=== PATIENT | female | born 1980 | race Caucasian/White ===

== ENCOUNTER 2021-05-15 16:07 | Emergency (ER) | payer OTHER ==
[2021-05-15 16:18] VITALS: RESP 18
[2021-05-15 16:54] LABS: Amorphous Sediment,Urine Few /hpf; Appearance,Urine Turbid (Clear); Bilirubin,Urine Negative (Negative); Blood,Urine Negative (Negative); Color,Urine Yellow; Glucose,Urine (UA) Negative (Negative); Ketones,Urine Negative (Negative); Leukocyte Esterase,Urine Large (Negative); Mucus,Urine Rare /hpf; Nitrite,Urine Negative (Negative); Protein,Urine 1+ (Negative); RBC,Urine 6 /hpf (0-5); Specific Gravity,Urine 1.021 (1.001-1.035); Squamous Epithelial Cell,Urine 9 /hpf (0-4); Urobilinogen,Urine <2.0 mg/dL (<2.0); WBC,Urine >182 /hpf (0-5)
[2021-05-15] MEDS ORDERED: SODIUM CHLORIDE 0.9% 1,000 ML IV STA (18:07)
[2021-05-15] MEDS ORDERED: cefTRIAXone IN SWFI 1,000 MG/10 ML SYRINGE IVP STA (18:28)
--- NOTE | 2021-05-15 18:30 | ED ---
General Adult HPI - General Chief complaint: Abdominal Pain Stated complaint: Kidney infection, fever Time Seen by Provider: 05/15/21 18:01 Source: patient, family, RN notes reviewed, old records reviewed Mode of arrival: ambulatory Limitations: no limitations - History of Present Illness Initial comments: 40-year-old female presenting with fever chills, dysuria, cloudy urine. Patient does report some bilateral low back pain which is slightly worse on the left. She's had no vomiting. She has had some URI symptoms including nasal congestion. She has been vaccinated against coronavirus elk uncertain if she's come in direct contact with the virus. Patient denies hematuria. - Related Data Previous Rx's Medication Instructions Recorded Cephalexin [Keflex] 500 mg PO TID 10 Days #30 cap 05/15/21 Allergies Allergy/AdvReac Type Severity Reaction Status Date / Time No Known Allergies Allergy Verified 05/15/21 18:30 Review of Systems ROS Statement: Those systems with pertinent positive or pertinent negative responses have been documented in the HPI. ROS Other: All systems not noted in ROS Statement are negative. Past Medical History Past Medical History: No Reported History History of Any Multi-Drug Resistant Organisms: None Reported Past Surgical History: No Surgical Hx Reported Past Psychological History: Anxiety, Depression Smoking Status: Current every day smoker Past Alcohol Use History: Occasional Past Drug Use History: None Reported General Exam Limitations: no limitations General appearance: alert, in no apparent distress Head exam: Present: atraumatic, normocephalic Eye exam: Present: normal appearance, PERRL ENT exam: Present: mucous membranes dry Neck exam: Present: normal inspection. Absent: tenderness, meningismus Respiratory exam: Present: normal lung sounds bilaterally. Absent: respiratory distress, wheezes Cardiovascular Exam: Present: normal rhythm, tachycardia GI/Abdominal exam: Present: soft. Absent: distended, tenderness, guarding, rebound Extremities exam: Present: normal inspection, normal capillary refill Back exam: Present: CVA tenderness (R), CVA tenderness (L) Neurological exam: Present: alert, oriented X3 Psychiatric exam: Present: normal affect, normal mood Skin exam: Present: warm, dry, intact. Absent: cyanosis, diaphoretic Course Vital Signs 05/15/21 16:14 Temperature 97.7 F Pulse Rate 111 H Respiratory 18 Rate Blood Pressure 148/104 O2 Sat by Pulse 97 Oximetry Medical Decision Making - Medical Decision Making 40-year-old female presenting for evaluation of fever chills, low back pain, upper respiratory symptoms. Patient does test positive for coronavirus in addition to urinary tract infection. Patient feels better on reevaluation. She is offered medical antibodies but does not wish to receive these currently. She has no respiratory distress, she is breathing room air without hypoxia. She will be prescribed Keflex for urinary tract infection awaiting culture results. She's given IV fluids and IV ceftriaxone in the emergency department. Return parameters discussed. - Lab Data Result diagrams: 05/15/21 18:29 05/15/21 18:29 Lab Results 05/15/21 05/15/21 05/15/21 Range/Units 16:23 18:29 18:29 WBC 5.6 (3.8-10.6) k/uL RBC 4.37 (3.80-5.40) m/uL Hgb 11.4 (11.4-16.0) gm/dL Hct 37.1 (34.0-46.0) % MCV 85.0 (80.0-100.0) fL MCH 26.1 (25.0-35.0) pg MCHC 30.7 L (31.0-37.0) g/dL RDW 15.6 H (11.5-15.5) % Plt Count 259 (150-450) k/uL MPV 8.1 Neutrophils % 65 % Lymphocytes % 19 % Monocytes % 9 % Eosinophils % 3 % Basophils % 1 % Neutrophils # 3.6 (1.3-7.7) k/uL Lymphocytes # 1.1 (1.0-4.8) k/uL Monocytes # 0.5 (0-1.0) k/uL Eosinophils # 0.2 (0-0.7) k/uL Basophils # 0.0 (0-0.2) k/uL Hypochromasia Marked PT 10.1 (9.0-12.0) sec INR 0.9 (<1.2) APTT 24.9 (22.0-30.0) sec Sodium (137-145) mmol/L Potassium (3.5-5.1) mmol/L Chloride (98-107) mmol/L Carbon Dioxide (22-30) mmol/L Anion Gap mmol/L BUN (7-17) mg/dL Creatinine (0.52-1.04) mg/dL Est GFR (CKD-EPI)AfAm (>60 ml/min/1.73 sqM) Est GFR (CKD-EPI)NonAf (>60 ml/min/1.73 sqM) Glucose (74-99) mg/dL Plasma Lactic Acid Paco (0.7-2.0) mmol/L Calcium (8.4-10.2) mg/dL Total Bilirubin (0.2-1.3) mg/dL AST (14-36) U/L ALT (4-34) U/L Alkaline Phosphatase (38-126) U/L Total Protein (6.3-8.2) g/dL Albumin (3.5-5.0) g/dL Amylase (30-110) U/L Lipase (23-300) U/L Urine Color Yellow Urine Appearance Turbid H (Clear) Urine pH 8.0 (5.0-8.0) Ur Specific Bowers 1.021 (1.001-1.035) Urine Protein 1+ H (Negative) Urine Glucose (UA) Negative (Negative) Urine Ketones Negative (Negative) Urine Blood Negative (Negative) Urine Nitrite Negative (Negative) Urine Bilirubin Negative (Negative) Urine Urobilinogen <2.0 (<2.0) mg/dL Ur Leukocyte Esterase Large H (Negative) Urine RBC 6 H (0-5) /hpf Urine WBC >182 H (0-5) /hpf Ur Squamous Epith Cells 9 H (0-4) /hpf Amorphous Sediment Few H (None) /hpf Urine Mucus Rare H (None) /hpf Urine HCG, Qual (Not Detectd) Coronavirus (PCR) (Not Detectd) 05/15/21 05/15/21 05/15/21 Range/Units 18:29 18:29 18:29 WBC (3.8-10.6) k/uL RBC (3.80-5.40) m/uL Hgb (11.4-16.0) gm/dL Hct (34.0-46.0) % MCV (80.0-100.0) fL MCH (25.0-35.0) pg MCHC (31.0-37.0) g/dL RDW (11.5-15.5) % Plt Count (150-450) k/uL MPV Neutrophils % % Lymphocytes % % Monocytes % % Eosinophils % % Basophils % % Neutrophils # (1.3-7.7) k/uL Lymphocytes # (1.0-4.8) k/uL Monocytes # (0-1.0) k/uL Eosinophils # (0-0.7) k/uL Basophils # (0-0.2) k/uL Hypochromasia PT (9.0-12.0) sec INR (<1.2) APTT (22.0-30.0) sec Sodium 138 (137-145) mmol/L Potassium 4.0 (3.5-5.1) mmol/L Chloride 103 (98-107) mmol/L Carbon Dioxide 25 (22-30) mmol/L Anion Gap 10 mmol/L BUN 10 (7-17) mg/dL Creatinine 0.56 (0.52-1.04) mg/dL Est GFR (CKD-EPI)AfAm >90 (>60 ml/min/1.73 sqM) Est GFR (CKD-EPI)NonAf >90 (>60 ml/min/1.73 sqM) Glucose 103 H (74-99) mg/dL Plasma Lactic Acid Paco (0.7-2.0) mmol/L Calcium 9.1 (8.4-10.2) mg/dL Total Bilirubin 0.1 L (0.2-1.3) mg/dL AST 20 (14-36) U/L ALT 16 (4-34) U/L Alkaline Phosphatase 76 (38-126) U/L Total Protein 6.8 (6.3-8.2) g/dL Albumin 4.1 (3.5-5.0) g/dL Amylase 73 (30-110) U/L Lipase 284 (23-300) U/L Urine Color Yellow Urine Appearance Turbid H (Clear) Urine pH 7.0 (5.0-8.0) Ur Specific Bowers 1.022 (1.001-1.035) Urine Protein Trace H (Negative) Urine Glucose (UA) Negative (Negative) Urine Ketones Negative (Negative) Urine Blood Negative (Negative) Urine Nitrite Negative (Negative) Urine Bilirubin Negative (Negative) Urine Urobilinogen <2.0 (<2.0) mg/dL Ur Leukocyte Esterase Large H (Negative) Urine RBC 14 H (0-5) /hpf Urine WBC 39 H (0-5) /hpf Ur Squamous Epith Cells 1 (0-4) /hpf Amorphous Sediment Few H (None) /hpf Urine Mucus Occasional H (None) /hpf Urine HCG, Qual Not Detected (Not Detectd) Coronavirus (PCR) (Not Detectd) 05/15/21 05/15/21 Range/Units 18:29 18:29 WBC (3.8-10.6) k/uL RBC (3.80-5.40) m/uL Hgb (11.4-16.0) gm/dL Hct (34.0-46.0) % MCV (80.0-100.0) fL MCH (25.0-35.0) pg MCHC (31.0-37.0) g/dL RDW (11.5-15.5) % Plt Count (150-450) k/uL MPV Neutrophils % % Lymphocytes % % Monocytes % % Eosinophils % % Basophils % % Neutrophils # (1.3-7.7) k/uL Lymphocytes # (1.0-4.8) k/uL Monocytes # (0-1.0) k/uL Eosinophils # (0-0.7) k/uL Basophils # (0-0.2) k/uL Hypochromasia PT (9.0-12.0) sec INR (<1.2) APTT (22.0-30.0) sec Sodium (137-145) mmol/L Potassium (3.5-5.1) mmol/L Chloride (98-107) mmol/L Carbon Dioxide (22-30) mmol/L Anion Gap mmol/L BUN (7-17) mg/dL Creatinine (0.52-1.04) mg/dL Est GFR (CKD-EPI)AfAm (>60 ml/min/1.73 sqM) Est GFR (CKD-EPI)NonAf (>60 ml/min/1.73 sqM) Glucose (74-99) mg/dL Plasma Lactic Acid Paco 1.6 (0.7-2.0) mmol/L Calcium (8.4-10.2) mg/dL Total Bilirubin (0.2-1.3) mg/dL AST (14-36) U/L ALT (4-34) U/L Alkaline Phosphatase (38-126) U/L Total Protein (6.3-8.2) g/dL Albumin (3.5-5.0) g/dL Amylase (30-110) U/L Lipase (23-300) U/L Urine Color Urine Appearance (Clear) Urine pH (5.0-8.0) Ur Specific Bowers (1.001-1.035) Urine Protein (Negative) Urine Glucose (UA) (Negative) Urine Ketones (Negative) Urine Blood (Negative) Urine Nitrite (Negative) Urine Bilirubin (Negative) Urine Urobilinogen (<2.0) mg/dL Ur Leukocyte Esterase (Negative) Urine RBC (0-5) /hpf Urine WBC (0-5) /hpf Ur Squamous Epith Cells (0-4) /hpf Amorphous Sediment (None) /hpf Urine Mucus (None) /hpf Urine HCG, Qual (Not Detectd) Coronavirus (PCR) Detected A (Not Detectd) Disposition Clinical Impression: UTI (urinary tract infection), COVID-19 Disposition: HOME SELF-CARE Condition: Fair Instructions (If sedation given, give patient instructions): Coronavirus Disease 2019 (COVID-19), Urinary Tract Infection in Women (ED) Additional Instructions: Please quarantined for 10 days. Please take vitamin C, vitamin D, and zinc at h ome. Please return with any difficulty breathing. Prescriptions: Cephalexin [Keflex] 500 mg PO TID 10 Days #30 cap Is patient prescribed a controlled substance at d/c from ED?: No Referrals: None,Stated [Primary Care Provider] - 1-2 days Srinivas Dhaliwal [STAFF PHYSICIAN] - 1-2 days Time of Disposition: 19:40
[2021-05-15 18:40] LABS: Basophils % (A) 1 %; Eosinophils # (A) 0.2 k/uL (0-0.7); Eosinophils % (A) 3 %; HCT 37.1 % (34.0-46.0); HGB 11.4 gm/dL (11.4-16.0); Hypochromasia Marked; Lymphocytes # (A) 1.1 k/uL (1.0-4.8); Lymphocytes % (A) 19 %; MCH 26.1 pg (25.0-35.0); MCHC 30.7 g/dL (31.0-37.0); Mean Platelet Volume 8.1; Monocytes # (A) 0.5 k/uL (0-1.0); Monocytes % (A) 9 %; Neutrophils # (A) 3.6 k/uL (1.3-7.7); Neutrophils % (A) 65 %; Platelet Count 259 k/uL (150-450); RBC 4.37 m/uL (3.80-5.40); RDW 15.6 % (11.5-15.5); WBC 5.6 k/uL (3.8-10.6)
[2021-05-15 18:52] LABS: Amorphous Sediment,Urine Few /hpf; Appearance,Urine Turbid (Clear); Bilirubin,Urine Negative (Negative); Blood,Urine Negative (Negative); Color,Urine Yellow; Glucose,Urine (UA) Negative (Negative); Ketones,Urine Negative (Negative); Leukocyte Esterase,Urine Large (Negative); Mucus,Urine Occasional /hpf; Nitrite,Urine Negative (Negative); Protein,Urine Trace (Negative); RBC,Urine 14 /hpf (0-5); Specific Gravity,Urine 1.022 (1.001-1.035); Squamous Epithelial Cell,Urine 1 /hpf (0-4); Urobilinogen,Urine <2.0 mg/dL (<2.0); WBC,Urine 39 /hpf (0-5)
[2021-05-15 18:53] LABS: ALT 16 U/L (4-34); AST 20 U/L (14-36); African American GFR (CKD) >90 (>60 ml/min/1.73 sqM); Albumin 4.1 g/dL (3.5-5.0); Alkaline Phosphatase 76 U/L (38-126); Amylase 73 U/L (30-110); Anion Gap 10 mmol/L; Blood Urea Nitrogen 10 mg/dL (7-17); Calcium 9.1 mg/dL (8.4-10.2); Carbon Dioxide 25 mmol/L (22-30); Chloride 103 mmol/L (98-107); Glucose 103 mg/dL (74-99); Lipase 284 U/L (23-300); Non-African American GFR(CKD) >90 (>60 ml/min/1.73 sqM); Sodium 138 mmol/L (137-145); Total Bilirubin 0.1 mg/dL (0.2-1.3); Total Protein 6.8 g/dL (6.3-8.2)
[2021-05-15 19:01] LABS: INR 0.9 (<1.2); Partial Thromboplastin Time 24.9 sec (22.0-30.0); Prothrombin Time 10.1 sec (9.0-12.0)
[2021-05-15 19:47] VITALS: BP 112/80; PULSE 90; TEMP 98.4
== END 2021-05-15 20:15 | disposition home or self-care (01) ==
LOC: EC 16:07
DX: U07.1 COVID-19 (principal); N39.0 Urinary tract infection, site not specified; F17.200 Nicotine dependence, unspecified, uncomplicated
CPT/HCPCS: 36415; 80053; 82150; 83605; 83690; 85025; 85610; 85730; 81001; 81025; 87086; 87635; 99283; 96374; 96361; J0696

== ENCOUNTER 2021-09-23 14:28 | Emergency (ER) | payer OTHER ==
[2021-09-23 15:11] VITALS: RESP 18; TEMP 98.5
[2021-09-23 15:43] LABS: Appearance,Urine Clear (Clear); Bilirubin,Urine Negative (Negative); Blood,Urine Negative (Negative); Color,Urine Yellow; Glucose,Urine (UA) Negative (Negative); Ketones,Urine Negative (Negative); Leukocyte Esterase,Urine Trace (Negative); Mucus,Urine Moderate /hpf; Nitrite,Urine Negative (Negative); Protein,Urine Negative (Negative); RBC,Urine <1 /hpf (0-5); Specific Gravity,Urine 1.026 (1.001-1.035); Squamous Epithelial Cell,Urine 5 /hpf (0-4); Urobilinogen,Urine <2.0 mg/dL (<2.0); WBC,Urine 2 /hpf (0-5)
--- NOTE | 2021-09-23 17:20 | ED ---
General Adult HPI - General Chief complaint: Upper Respiratory Infection Stated complaint: Bodyaches/Congestion Time Seen by Provider: 09/23/21 15:55 Source: patient Mode of arrival: ambulatory Limitations: no limitations - History of Present Illness Initial comments: This 41-year-old female presents emergency Department with nasal congestion and chills 3 days. Patient states her chills have subsided today, however she still still have a little bit of nasal congestion. Patient states she believes her symptoms are getting better as her nasal drainage is clear and less than it was a 3 days ago. Patient denies having any fevers or cough. Patient denies any chest pain or shortness of breath, abdominal pain, nausea, vomiting, change in bowel or bladder, change in vision, lightheadedness, dizziness. Patient denies any headache, sore throat, trouble swallowing. Patient states she may have been exposed to hepatitis A but is unsure if it was may be influenza A. Patient denies any abdominal pain, nausea, vomiting, jaundice, diarrhea, fatigue, constipation. - Related Data Previous Rx's Medication Instructions Recorded Cephalexin [Keflex] 500 mg PO TID 10 Days #30 cap 05/15/21 Allergies Allergy/AdvReac Type Severity Reaction Status Date / Time No Known Allergies Allergy Verified 09/23/21 15:11 Review of Systems ROS Statement: Those systems with pertinent positive or pertinent negative responses have been documented in the HPI. ROS Other: All systems not noted in ROS Statement are negative. Past Medical History Past Medical History: No Reported History History of Any Multi-Drug Resistant Organisms: None Reported Past Surgical History: Section Past Psychological History: Anxiety, Depression Smoking Status: Current every day smoker Past Alcohol Use History: Occasional Past Drug Use History: None Reported General Exam Limitations: no limitations General appearance: alert, in no apparent distress Head exam: Present: atraumatic, normocephalic, normal inspection Eye exam: Present: normal appearance, PERRL, EOMI. Absent: scleral icterus, conjunctival injection, periorbital swelling Pupils: Present: normal accommodation ENT exam: Present: normal exam, normal oropharynx, mucous membranes moist Neck exam: Present: normal inspection. Absent: tenderness, meningismus, lymphadenopathy Respiratory exam: Present: normal lung sounds bilaterally. Absent: respiratory distress, wheezes, rales, rhonchi, stridor, chest wall tenderness Cardiovascular Exam: Present: regular rate, normal rhythm, normal heart sounds. Absent: systolic murmur, diastolic murmur, rubs, gallop, clicks GI/Abdominal exam: Present: soft, normal bowel sounds. Absent: distended, tenderness, guarding, rebound, rigid Extremities exam: Present: normal inspection, full ROM, normal capillary refill. Absent: tenderness, pedal edema, joint swelling, calf tenderness Back exam: Present: normal inspection, full ROM. Absent: CVA tenderness (R), CVA tenderness (L), paraspinal tenderness, vertebral tenderness Neurological exam: Present: alert, oriented X3, CN II-XII intact Psychiatric exam: Present: normal affect, normal mood Skin exam: Present: warm, dry, intact, normal color. Absent: rash Course Vital Signs 09/23/21 15:08 Temperature 98.5 F Pulse Rate 88 Respiratory 18 Rate Blood Pressure 143/79 O2 Sat by Pulse 98 Oximetry Medical Decision Making - Medical Decision Making This 41-year-old female presents emergency Department with improving nasal congestion and chills 2-3 days. COVID-19, influenza A/B were negative. Patient instructed to follow up with her primary care provider on Sunday; due to patient being unsure if she was exposed to influenza a or hepatitis A, I instructed her to follow up with her primary care provider on Sunday for a hepatitis panel after she finds out if she was exposed to hepatitis A one day ago-patient currently asymptomatic. Patient stated she had this nasal congestion and chills before she saw the child that either has hepatitis A or influenza A. Strict return precautions were discussed. Patient verbally agreed to plan and stated she would call her primary care provider on Sunday morning. Patient sent home in stable condition. Case discussed in detail my attending, . - Lab Data Lab Results 09/23/21 09/23/21 09/23/21 Range/Units 15:14 15:17 15:17 Urine Color Yellow Urine Appearance Clear (Clear) Urine pH 6.0 (5.0-8.0) Ur Specific Sprague 1.026 (1.001-1.035) Urine Protein Negative (Negative) Urine Glucose (UA) Negative (Negative) Urine Ketones Negative (Negative) Urine Blood Negative (Negative) Urine Nitrite Negative (Negative) Urine Bilirubin Negative (Negative) Urine Urobilinogen <2.0 (<2.0) mg/dL Ur Leukocyte Esterase Trace H (Negative) Urine RBC <1 (0-5) /hpf Urine WBC 2 (0-5) /hpf Ur Squamous Epith Cells 5 H (0-4) /hpf Urine Mucus Moderate H (None) /hpf Urine HCG, Qual Not Detected (Not Detectd) Coronavirus (PCR) Not Detected (Not Detectd) Influenza Type A RNA (Not Detectd) Influenza Type B (PCR) (Not Detectd) 09/23/21 Range/Units 16:39 Urine Color Urine Appearance (Clear) Urine pH (5.0-8.0) Ur Specific [place] (1.001-1.035) Urine Protein (Negative) Urine Glucose (UA) (Negative) Urine Ketones (Negative) Urine Blood (Negative) Urine Nitrite (Negative) Urine Bilirubin (Negative) Urine Urobilinogen (<2.0) mg/dL Ur Leukocyte Esterase (Negative) Urine RBC (0-5) /hpf Urine WBC (0-5) /hpf Ur Squamous Epith Cells (0-4) /hpf Urine Mucus (None) /hpf Urine HCG, Qual (Not Detectd) Coronavirus (PCR) (Not Detectd) Influenza Type A RNA Not Detected (Not Detectd) Influenza Type B (PCR) Not Detected (Not Detectd) Disposition Clinical Impression: Upper respiratory infection Disposition: HOME SELF-CARE Instructions (If sedation given, give patient instructions): Upper Respiratory Infection (ED) Additional Instructions: Please follow-up with your primary care provider in next 1-2 days. Return to the emergency department with any new, worsening, or concerning symptoms. Is patient prescribed a controlled substance at d/c from ED?: No Referrals: Butch Alan DO [Primary Care Provider] - 1-2 days Time of Disposition: 17:20
[2021-09-23 20:27] VITALS: BP 133/78; PULSE 86
== END 2021-09-23 17:40 | disposition home or self-care (01) ==
LOC: EC 14:28
DX: J06.9 Acute upper respiratory infection, unspecified (principal); Z20.822 Contact with and (suspected) exposure to COVID-19; F17.200 Nicotine dependence, unspecified, uncomplicated
CPT/HCPCS: 81001; 81025; 87502; 87635; 99283

== ENCOUNTER 2022-08-30 18:06 | Emergency (ER) | payer OTHER ==
[2022-08-30] MEDS ORDERED: LIDOCAINE VISCOUS 2% 15 ML CUP MUCOUS MEM ONE (19:34)
--- NOTE | 2022-08-30 19:34 | ED ---
ENT HPI - General Chief complaint: ENT Stated complaint: sore throat Time Seen by Provider: 08/30/22 18:40 Source: patient Mode of arrival: ambulatory Limitations: no limitations - History of Present Illness Initial comments: Patient is a 42-year-old female presenting with chief complaint of sores inside the mouth. Patient states that she snorted meth 3 days ago. States that she has had a painful lesions over the tongue at the back of throat. She notes pain with swallowing. She is still able to swallow. She is having no difficulty breathing. No drooling or voice changes. No fevers or chills. No cough, congestion, chest pain. - Related Data Home Medications Medication Instructions Recorded Confirmed Citalopram Hydrobromide [CeleXA] 1 tab PO DAILY 04/05/22 04/05/22 Multivitamin [Multivitamins Adult 1 tab PO DAILY 04/05/22 04/05/22 Gummies] buPROPion SR [Wellbutrin SR] 150 mg PO BID 04/05/22 04/05/22 Previous Rx's Medication Instructions Recorded Lidocaine Viscous 2% [Xylocaine 5 ml MUCOUS MEM Q6HR PRN #15 ml 08/30/22 Viscous] Allergies Allergy/AdvReac Type Severity Reaction Status Date / Time No Known Allergies Allergy Verified 08/30/22 18:33 Review of Systems ROS Statement: Those systems with pertinent positive or pertinent negative responses have been documented in the HPI. ROS Other: All systems not noted in ROS Statement are negative. Past Medical History Past Medical History: No Reported History Additional Past Medical History / Comment(s): Depression, anxiety, anemia. History of Any Multi-Drug Resistant Organisms: None Reported Past Surgical History: Section Past Anesthesia/Blood Transfusion Reactions: No Reported Reaction Past Psychological History: Anxiety, Depression Smoking Status: Current every day smoker Past Alcohol Use History: None Reported Past Drug Use History: Methamphetamine General Exam Limitations: no limitations General appearance: alert, in no apparent distress Head exam: Present: atraumatic, normocephalic, normal inspection Eye exam: Present: normal appearance Expanded Mouth exam: Present: other (Multiple aphthous ulcers noted on the tongue and the soft palate). Absent: drooling, trismus, muffled voice Neck exam: Present: normal inspection, full ROM Respiratory exam: Present: normal lung sounds bilaterally. Absent: respiratory distress, wheezes, rales, rhonchi, stridor Cardiovascular Exam: Present: regular rate, normal rhythm, normal heart sounds. Absent: systolic murmur, diastolic murmur, rubs, gallop, clicks Neurological exam: Present: alert, oriented X3, CN II-XII intact Psychiatric exam: Present: normal affect, normal mood Skin exam: Present: warm, dry, intact, normal color. Absent: rash Course Vital Signs 08/30/22 08/30/22 18:29 20:08 Temperature 98.2 F 97.9 F Pulse Rate 107 H 97 Respiratory 20 16 Rate Blood Pressure 126/78 124/76 O2 Sat by Pulse 98 99 Oximetry Medical Decision Making - Medical Decision Making Was pt. sent in by a medical professional or institution (, [facility], [employer], urgent care, hospital, or skilled nursing...) When possible be specific @ -No Did you speak to anyone other than the patient for history (EMS, parent, family, police, friend...)? What history was obtained from this source @ -No Did you review nursing and triage notes (agree or disagree)? Why? @ -I reviewed and agree with nursing and triage notes Were old charts reviewed (outside hosp., previous admission, EMS record, old EKG, old radiological studies, urgent care reports/EKG's, skilled nursing records)? Report findings @ -No old charts were reviewed Differential Diagnosis (chest pain, altered mental status, abdominal pain women, abdominal pain men, vaginal bleeding, weakness, fever, dyspnea, syncope, headache, dizziness, GI bleed, back pain, seizure, CVA, palpatations, mental health, musculoskeletal)? @ -Differential includes viral pharyngitis, abscess ulcers, HSV lesions, this is not an all inclusive list EKG interpreted by me (3pts min.). @ -As above X-rays interpreted by me (1pt min.). @ -None done CT interpreted by me (1pt min.). @ -None done U/S interpreted by me (1pt. min.). @ -None done What testing was considered but not performed or refused? (CT, X-rays, U/S, labs)? Why? @ -None What meds were considered but not given or refused? Why? @ -None Did you discuss the management of the patient with other professionals (professionals i.e. Dr., PA, [employer], lab, RT, psych nurse, director of social work, director of online education, teacher, civilian jail officer, case reviewer)? Give summary @ -No Was smoking cessation discussed for >3mins.? @ -No Was critical care preformed (if so, how long)? @ -No Were there social determinants of health that impacted care today? How? (Homelessness, low income, unemployed, alcoholism, drug addiction, transportation, low edu. Level, literacy, decrease access to med. care, correction, rehab)? @ -No Was there de-escalation of care discussed even if they declined (Discuss DNR or withdrawal of care, Hospice)? DNR status @ -No What co-morbidities impacted this encounter? (DM, HTN, Smoking, COPD, CAD, Cancer, CVA, ARF, Chemo, Hep., AIDS, mental health diagnosis, sleep apnea, morbid obesity)? @ -None Was patient admitted / discharged? Hospital course, mention meds given and route, prescriptions, significant lab abnormalities, going to OR and other pertinent info. @ -Patient is a 42-year-old female presenting with chief complaint of painful lesions to the mouth and throat after doing meth 3 days ago. On physical exami nation there are multiple ulcerations consistent with aphthous ulcers on the tongue and soft palate. Patient is educated on supportive treatment and provided with viscous lidocaine for swishing and spitting. Encouraged ceasing all drug use. Follow-up with PCP. Report back to ER with any new or worsening symptoms. Discussed return parameters and answered all questions. Patient conveyed verbal understanding and agreed to the plan. I discussed this case in detail with my attending Dr. Dave Undiagnosed new problem with uncertain prognosis? @ -No Drug Therapy requiring intensive monitoring for toxicity (Heparin, Nitro, Insulin, Cardizem)? @ -No Were any procedures done? @ -No Diagnosis/symptom? @ -Aphthous ulcers Acute, or Chronic, or Acute on Chronic? @ -Acute Uncomplicated (without systemic symptoms) or Complicated (systemic symptoms)? @ -Uncomplicated Side effects of treatment? @ -No Exacerbation, Progression, or Severe Exacerbation? @ -No Poses a threat to life or bodily function? How? (Chest pain, [place], [place], pneumonia, PE, COPD, DKA, ARF, appy, cholecystitis, CVA, Diverticulitis, Homicidal, Suicidal, threat to staff... and all critical care pts) @ -No Disposition Clinical Impression: Aphthous stomatitis Disposition: HOME SELF-CARE Condition: Good Instructions (If sedation given, give patient instructions): Marya Calderon (ED) Additional Instructions: Follow-up with PCP. Report back to ER with any new or worsening symptoms. Abstain from drug use. Take medication as prescribed, swish and spit the lidocaine. Prescriptions: Lidocaine Viscous 2% [Xylocaine Viscous] 5 ml MUCOUS MEM Q6HR PRN #15 ml PRN Reason: Pain Is patient prescribed a controlled substance at d/c from ED?: No Referrals: Butch Alan DO [Primary Care Provider] - 1-2 days Time of Disposition: 19:33
[2022-08-30 20:10] VITALS: BP 124/76; PULSE 97; RESP 16; TEMP 97.9
== END 2022-08-30 20:36 | disposition home or self-care (01) ==
LOC: EC 18:06
DX: K12.0 Recurrent oral aphthae (principal); F41.9 Anxiety disorder, unspecified; F32.A Depression, unspecified; F17.200 Nicotine dependence, unspecified, uncomplicated; F15.20 Other stimulant dependence, uncomplicated
CPT/HCPCS: 99282